=== PATIENT | male | born 1970 | race Caucasian/White ===

== ENCOUNTER 2019-09-09 12:12 | Outpatient (CLI) | payer BC ==
--- NOTE | 2019-09-09 15:45 | MRI ---
MRI LEFT SHOULDER 09/09/19 PROVIDED CLINICAL HISTORY: Left shoulder pain. FINDINGS: The components of the rotator cuff appear intact. The long head biceps tendon appears intact and norm ally located. There is abnormal signal present in the region of the superior labrum suspicious for SLAP tear. Addit ionally, there is a separate area of linear fluid signal intensity seen at the base of the anteroinfe rior glenoid labrum that may reflect nondisplaced tear. The glenoid labrum and glenohumeral articular cartilage are suboptimally evaluated in the absence of joint distention, but appear otherwise normal . The amount of fluid within the glenohumeral joint appears physiologic. No focal concerning regional m arrow or muscular signal abnormality evident. Acromioclavicular joint osteoarthrosis and acromial ent hesophyte formation are noted, which produce mass effect upon the subjacent supraspinatus. There is g reater than physiologic subacromial subdeltoid bursal fluid. IMPRESSION: 1. Findings compatible with SLAP tear and findings possibly also reflecting tear involving the a nterior inferior glenoid labrum. 2. Greater than physiologic subacromial subdeltoid bursal fluid with acromioclavicular joint ost eoarthrosis and acromial enthesophyte formation. Correlate with concerns for subacromial impingement. POS: DORIS
== END 2019-09-09 12:13 | disposition home or self-care (01) ==
LOC: SCSMRI 12:12
PROVIDERS: ATTEND Orthopaedic Surgery
DX: M75.42 Impingement syndrome of left shoulder (principal); M19.012 Primary osteoarthritis, left shoulder; M75.92 Shoulder lesion, unspecified, left shoulder

== ENCOUNTER 2019-10-06 12:23 | Outpatient (CLI) | payer BC ==
[~2019-10-06 12:23] MED LIST: Magnevist 469MG/ML 20 ML VIAL ONE
--- NOTE | 2019-10-06 15:58 | MRI ---
MR ARTHROGRAM LEFT SHOULDER: DATE: 10/06/2019. PROVIDED CLINICAL HISTORY: Left shoulder pain. FINDINGS: Correlation is made with the nonarthrographic MRI performed 09/09/2019. The components of the rotator cuff appear intact. The longhead biceps appears intact and is normally located. Nondisplaced tearing involving the anterior-inferior glenoid labrum is demonstrated. Invo lvement of the articular cartilage or bone is not evident. There is contrast containing fluid demons trated undermining the superior labrum, the depth of width are suspicious for a SLAP tear. No focal glenohumeral articular cartilage defect is apparent. Acromioclavicular joint degenerative changes are seen with mild mass effect upon the subjacent supras pinatus. There is mild thickening of the coracoacromial ligament. IMPRESSION: 1. Nondisplaced tear involving the anterior-inferior glenoid labrum. 2. Findings suspicious for superior labrum anterior to posterior tear. 3. Acromioclavicular joint osteoarthrosis and mild thickening of the coracoacromial ligament. Corre late with concerns for subacromial impingement. POS: DORIS
--- NOTE | 2019-10-06 16:50 | RAD ---
Arthrogram left shoulder HISTORY: Internal derangement. Impingement syndrome. FINDINGS: After explaining the procedure and answering all questions, the anterior aspect of left gerri dixon was prepped and draped in usual sterile fashion. Sterile technique, buffered local anesthesia, fluoroscopic guidance, and an anterior approach were used to carefully advance the tip of a 22-gauge spinal needle to the joint capsule at the level of the humeral head. Position was confirmed with fluoroscopy. Approximately 7 cc of a liquid mixture containing normal saline, 1% lidoc pilo, iodinated contrast, and small amounts of gadolinium and epinephrine were then instilled into the joint capsule under fluoroscopic control. Needle was removed and spot images obtained. Contrast r emained within the joint capsule. Patient tolerated the procedure well and was transferred to MRI in good condition. IMPRESSION : Technically successful left shoulder arthrogram. No evidence of full-thickness rotator cuff tear. MRI is pending.
== END 2019-10-06 12:24 | disposition home or self-care (01) ==
LOC: RAD 12:23
PROVIDERS: ATTEND Orthopaedic Surgery
DX: M25.512 Pain in left shoulder (principal)
CPT/HCPCS: 23350

== ENCOUNTER 2021-12-23 11:31 | Outpatient (CLI) | payer BC | END 2021-12-23 11:32 | disposition home or self-care (01) | LOC: LABBT 11:31 | PROVIDERS: ATTEND Ophthalmology Retina Specialist | DX: Z20.822 Contact with and (suspected) exposure to COVID-19 (principal) | CPT/HCPCS: 87811 ==

== ENCOUNTER 2021-12-26 05:51 | Day surgery (SDC) | payer BC ==
[2021-12-24 10:19] VITALS: BMI 22.4
[~2021-12-26 05:51] MED LIST changes: +EPINEPHrine 0.3 MG in Ophthalmic Irrigation Solution 500 ML IRR SCH; -Magnevist 469MG/ML 20 ML VIAL ONE
[2021-12-26] MEDS ORDERED: Cyclopentolate 1% Opth Drop 2 ML BOT ONE (06:04)
[2021-12-26] MEDS ORDERED: Phenylephrine 2.5% Ophth Soln 5 ML BOT ONE (06:04)
[2021-12-26] MEDS ORDERED: Midazolam HCl 2 mg/2 ml Vial ONE (06:27)
[2021-12-26] MEDS ORDERED: fentaNYL Citrate/PF 100 MCG/2 ML SYRINGE ONE (06:28)
[2021-12-26] MEDS ORDERED: PROPOFOL 20 ML ONE (06:28)
[2021-12-26] MEDS ORDERED: Bupivacaine 0.75% 10 ML VIAL ONE (07:05)
[2021-12-26] MEDS ORDERED: Lidocaine 1% PF 5 ML VIAL ONE (07:05)
[2021-12-26] MEDS ORDERED: CEFAZOLIN 1 GM VIAL ONE (07:05)
[2021-12-26] MEDS ORDERED: Triamcinolone 40 MG/ML VIAL ONE (07:05)
[2021-12-26] MEDS ORDERED: PROPOFOL 200 MG/20 ML VIAL ONE (07:05)
[2021-12-26] MEDS ORDERED: Lidocaine 4% PF 5 ML AMP ONE (07:05)
[2021-12-26] MEDS ORDERED: Maxitrol 0.1% Opth Oint 3.5 GM TUBE ONE (07:05)
== END 2021-12-26 08:33 | disposition home or self-care (01) ==
LOC: SDC 05:51
PROVIDERS: ATTEND Ophthalmology Retina Specialist
PROC: 08T43ZZ Resection of Right Vitreous, Percutaneous Approach (ICD-10-PCS; principal; 2021-12-26)
PROC: 08NE3ZZ Release Right Retina, Percutaneous Approach (ICD-10-PCS; principal; 2021-12-26)
DX: H43.311 Vitreous membranes and strands, right eye (principal); G89.29 Other chronic pain; M54.9 Dorsalgia, unspecified; Z79.899 Other long term (current) drug therapy; Z88.6 Allergy status to analgesic agent
CPT/HCPCS: J0171; J0690; J2250; J2704; J3301; J3490

== ENCOUNTER 2021-12-27 09:47 | Outpatient (CLI) | payer BC | END 2021-12-27 09:48 | disposition home or self-care (01) | LOC: CTENTCT 09:47 | PROVIDERS: ATTEND Specialist | DX: J32.9 Chronic sinusitis, unspecified (principal) | CPT/HCPCS: 70486 ==

== ENCOUNTER 2022-01-07 08:05 | Outpatient (CLI) | payer BC | END 2022-01-07 08:06 | disposition home or self-care (01) | LOC: LABBT 08:05 | PROVIDERS: ATTEND Ophthalmology Retina Specialist | DX: Z20.822 Contact with and (suspected) exposure to COVID-19 (principal) | CPT/HCPCS: 87811 ==

== ENCOUNTER 2022-01-09 05:50 | Day surgery (SDC) | payer BC ==
[2022-01-07 15:46] VITALS: BMI 23.0
[2022-01-09] MEDS ORDERED: fentaNYL Citrate/PF 100 MCG/2 ML SYRINGE ONE (06:29)
[2022-01-09] MEDS ORDERED: Midazolam HCl 2 mg/2 ml Vial ONE (06:29)
[2022-01-09] MEDS ORDERED: PROPOFOL 20 ML ONE (06:29)
[2022-01-09] MEDS ORDERED: Cyclopentolate 1% Opth Drop 2 ML BOT ONE (06:48)
[2022-01-09] MEDS ORDERED: Phenylephrine 2.5% Ophth Soln 5 ML BOT ONE (06:48)
[2022-01-09] MEDS ORDERED: Triamcinolone 40 MG/ML VIAL ONE (07:22)
[2022-01-09] MEDS ORDERED: Lidocaine 1% MPF 2 ML VIAL ONE (07:22)
[2022-01-09] MEDS ORDERED: CEFAZOLIN 1 GM VIAL ONE (07:22)
[2022-01-09] MEDS ORDERED: Bupivacaine 0.75% 10 ML VIAL ONE (07:22)
[2022-01-09] MEDS ORDERED: Maxitrol 0.1% Opth Oint 3.5 GM TUBE ONE (07:22)
[2022-01-09] MEDS ORDERED: Lidocaine 4% PF 5 ML AMP ONE (07:22)
== END 2022-01-09 08:17 | disposition home or self-care (01) ==
LOC: SDC 05:50
PROVIDERS: ATTEND Ophthalmology Retina Specialist
PROC: 08NF3ZZ Release Left Retina, Percutaneous Approach (ICD-10-PCS; principal; 2022-01-09)
PROC: 08T53ZZ Resection of Left Vitreous, Percutaneous Approach (ICD-10-PCS; principal; 2022-01-09)
DX: H43.312 Vitreous membranes and strands, left eye (principal); Z79.899 Other long term (current) drug therapy; Z88.6 Allergy status to analgesic agent
CPT/HCPCS: J0171; J0690; J2250; J2704; J3301; J3490

== ENCOUNTER → 2022-01-30 | Day surgery (SDC) | payer BC ==
[2022-01-29 09:26] VITALS: BMI 22.4
[~2022-01-30] MED LIST changes: +Bacitracin Zinc Ointment 30 gm TUBE ONE; +Dexamethasone 20 MG/5 ML VIAL ONE; -EPINEPHrine 0.3 MG in Ophthalmic Irrigation Solution 500 ML IRR SCH; +EPINEPHrine 1 MG/ML AMP ONE; +Fentanyl 100 MCG/2 ML VIAL ONE; +Glycopyrrolate 0.2 MG/ML 5 ML SYRINGE ONE; +HYDROcodone/Acetaminophen 5/325 mg Tablet ONE; +Lidocaine 1% (PF) 30 ML VIAL ONE; +Midazolam HCl 2 mg/2 ml Vial ONE; +NEOSTIGMINE 3 MG/3 ML SYR 3 MG/3 ML SYRINGE ONE; +Ondansetron PF 4 MG/2 ML Vial ONE; +Oxymetazoline HCl 0.05% (30 ML BOT) ONE; +PROPOFOL 200 MG/20 ML VIAL ONE; +Rocuronium Bromide 10 MG/ML (10ML VIAL) ONE; +fentaNYL Citrate/PF 100 MCG/2 ML SYRINGE ONE; +methylPREDNISolone Acetate 40 mg/ml Vial ONE
== END ==
LOC: SDC 12:29
PROVIDERS: ATTEND Specialist
PROC: 09BM8ZZ Excision of Nasal Septum, Via Natural or Artificial Opening Endoscopic (ICD-10-PCS; principal; 2022-01-30)
PROC: 099R8ZZ Drainage of Left Maxillary Sinus, Via Natural or Artificial Opening Endoscopic (ICD-10-PCS; principal; 2022-01-30)
PROC: 09TL8ZZ Resection of Nasal Turbinate, Via Natural or Artificial Opening Endoscopic (ICD-10-PCS; principal; 2022-01-30)
PROC: 099Q8ZZ Drainage of Right Maxillary Sinus, Via Natural or Artificial Opening Endoscopic (ICD-10-PCS; principal; 2022-01-30)
DX: J32.0 Chronic maxillary sinusitis (principal); J34.2 Deviated nasal septum; J34.3 Hypertrophy of nasal turbinates; Z88.6 Allergy status to analgesic agent
CPT/HCPCS: J0171; J1100; J2001; J2250; J2405; J2704; J2920; J3010